=== PATIENT | male | born 1975 | race Caucasian/White ===

== ENCOUNTER → 2022-10-13 | Outpatient (CLI) | payer BC ==
[~2022-10-13] MED LIST: ACULAR 3 ML3 M1 OP; CIPRO500 MG PO; DOXYCYCLINE MO100 MG PO; TOBREX OPHTH S2.5 ML OPH
== END | disposition home or self-care (01) ==
LOC: RAD 16:34
PROVIDERS: ATTEND Physician Assistant
DX: I10 Essential (primary) hypertension (principal)